=== PATIENT | female | born 1930 | race Caucasian/White ===

== ENCOUNTER 2016-09-14 01:46 | Emergency (ER) | payer MEDICARE, BC, OTHER ==
[2016-09-14] MEDS ORDERED: Fentanyl 100 MCG/2 ML VIAL ONE (02:28)
[2016-09-14 02:47] LABS: #Basophils 0.1 thou/uL (0.0-0.2); #Eosinphils 0.2 thou/uL (0.0-0.7); #Lymphocytes 2.5 thou/uL (1.20-3.40); #Monocytes 0.8 thou/uL (0.11-0.59); #Neutrophils 6.3 thou/uL (1.40-6.50); %Basophils 1.5 % (0.0-1.0); %Eosinophils 1.8 % (0.0-10.0); %Lymphocytes 25.5 % (21.0-51.0); %Monocytes 7.9 % (0.0-10.0); %Neutrophils 63.3 % (42.0-75.0); Hemoglobin 15.6 g/dL (12.0-16.0); Mean Corpuscular HGB CONC 34.9 g/dL (32.0-36.0); Mean Corpuscular Hemoglobin 32.2 pg (27.0-31.0); Mean Corpuscular Volume 92.1 fl (81.0-99.0); Mean Platelet Volume 7.2 fL (7.4-10.4); Platelet Count 294 thou/uL (130-400); RBC Distribution Width 12.3 % (11.5-14.5); Red Blood Cell (RBC) Count 4.85 mill/uL (4.20-5.40); White Blood Cell (WBC) Count 9.9 thou/uL (4.8-10.8)
[2016-09-14 03:02] LABS: ALT (SGPT) 22 U/L (0-55); AST (SGOT) 37 U/L (5-34); Albumin 3.4 g/dL (3.4-4.8); Alkaline Phosphatase 111 U/L (40-150); Anion Gap 18 mmol/L (10-20); BUN (Urea Nitrogen) 7 mg/dL (9.8-20.1); Bilirubin, Total 0.8 mg/dL (0.2-1.2); Calc. Creatinine Clearance 0 mL/min (70-130); Carbon Dioxide 26 mmol/L (23-31); Chloride 99 mmol/L (98-107); Estimated GFR-MDRD 85; Globulin 3.1 g/dL (2.4-3.5); Glucose 116 mg/dL (83-110); Protein, Total 6.5 g/dL (5.8-8.1); Sodium 139 mmol/L (136-145)
[2016-09-14 03:03] LABS: CKMB 1.3 ng/mL (0-6.6); Troponin I Less than 0.010 ng/mL (< 0.028)
--- NOTE | 2016-09-14 04:28 | ERRECORD ---
[facility] EMERGENCY RECORD HPI BACK (02:01 ABUS) CHIEF COMPLAINT: Patient presents for evaluation of pain, to the mid back, Patient presents for evaluation of tenderness, to the mid back. HISTORIAN: History provided by patient, Additional history obtained from EMS, 86 yr old F with PMH of AD who is DNR and comes In by EMS with reports of abdominal pain, distension (per senior living staff) and back pain per patient. No reports of N/V/D or apparent or reported trauma or falls. Patient does not move legs at baseline due to stroke deficts. MECHANISM OF INJURY: No apparent mechanism of injury. LOCATION: Unable to localize symptoms. QUALITY: Pain is dull in nature, described as aching. SEVERITY: Currently symptoms are severe. TIME COURSE: Sudden onset of symptoms. ASSOCIATED WITH: Associated with abdominal pain. EXACERBATED BY: Patient's condition exacerbated by movement. RELIEVED BY: Patient's condition relieved by nothing. ROS (02:04 ABUS) GI: Historian reports abdominal pain. NOTES: Systems not reviewed; unable., Emergency room caveat invoked due to patient with dementia. PAST MEDICAL HISTORY (03:27 ADIN) MEDICAL HISTORY: Notes: Vascular dementia. Insomnia. Anorexia. Malignant neoplasm of nipple and areola., Past medical history includes history of hyperlipidemia, neurological disease. ischemic cerebral vascular accident. FEMALE SURGICAL HISTORY: Patient's surgical history not available at time of evaluation. PSYCHIATRIC HISTORY: Psychiatric history includes, depression. KNOWN ALLERGIES Codeine: Reaction: MAKES HER NAUSEATED Hydrocodone Penicillin G Propoxyphene Sulfa Antibiotics: Reaction: MAKES HER NAUSEATED Varenicline CURRENT MEDICATIONS acetaminophen: CAPSULE : Strength - 500 mg : ORAL Patient Dose: 500 mg Oral As Needed. (03:21 ADIN) omeprazole: CAPSULE,DELAYED RELEASE (ENTERIC COATED) : Strength - 20 mg : ORAL &a-1R&a+25V*p+0X*[id number]*c202B*c15G*c2P*p-0X&a-25V&a+1R Name: Chika Castanon : 1930 F86 MedRec: [id number] AcctNum: [id number] Prepared: Rosey Sep 14, 2016 05:57 by Interface Page 1 of 4 pMD [facility] EMERGENCY RECORD Patient Dose: 20 mg Oral once a day. (03:21 ADIN) Miralax: POWDER (GRAM) : Strength - 17 gram/dose : ORAL Patient Dose: As Needed. (03:22 ADIN) Remeron: TABLET : Strength - 30 mg : ORAL Patient Dose: 30 mg Oral once a day. (03:22 ADIN) LORazepam: TABLET : Strength - 0.5 mg : ORAL Patient Dose: 0.5 mg Oral As Needed. (03:23 ADIN) potassium chloride: TABLET, EXTENDED RELEASE : Strength - 10 mEq : ORAL Patient Dose: 10 mEq Oral once a day. (03:24 ADIN) Exelon: PATCH, TRANSDERMAL 24 HOURS : Strength - 9.5 mg/24 hour : TRANSDERMAL Patient Dose: 1 Patch Transdermal once a day. (03:25 ADIN) cyanocobalamin (vitamin B-12): TABLET : Strength - 100 mcg : ORAL Patient Dose: Unknown. (03:25 ADIN) VITAL SIGNS VITAL SIGNS: BP: 159/84, Pulse: 95, Resp: 18, Temp: 98.7 (Oral), O2 sat: 94 on Room Air, Time: 09/14/2016 01:48. (01:48 ADIN) BP: 158/70, Pulse: 108, Resp: 18, Pain: 10, O2 sat: 97 on Room Air, Time: 09/14/2016 03:29. (03:29 ADIN) BP: 150/66, Pulse: 108, Resp: 16, O2 sat: 98 on RA, Time: 09/14/2016 03:54. (03:54 ADIN) BP: 144/66, Pulse: 109, Resp: 16, O2 sat: 92 on RA, Time: 09/14/2016 05:11. (05:11 ADIN) BP: 135/62, Pulse: 111, Resp: 16, Pain: 0, O2 sat: 93 on Room Air, Time: 09/14/2016 05:39. (05:39 ADIN) PHYSICAL EXAM (02:04 ABUS) CONSTITUTIONAL: Vital Signs Reviewed, Patient afebrile, Pulse normal, Blood pressure normal, Respiratory rate normal, Patient appears non toxic, Patient appears, in moderate pain distress, Patient, oriented to person. HEAD: Head exam normal, no Zavala's sign, No racoon sign, No contusions, No Lacerations. EYES: Eye exam included findings of eyelids normal to inspection, Pupils equally round and reactive to light, Extraocular muscles intact, Conjunctiva normal, Sclera normal, no periorbital ecchymosis, no periorbital edema, no periorbital erythema. ENT: Ear exam normal, external ear normal, Nose exam normal, no nasal deformity. NECK: Trachea midline. RESPIRATORY CHEST: Respiratory and chest exam normal, Respiratory exam included findings of no respiratory distress, Breath sounds clear, Chest exam included findings of chest movement symmetrical, Chest expansion equal. &a-1R&a+25V*p+0X*[id number]*c202B*c15G*c2P*p-0X&a-25V&a+1R Name: Chika Castanon : 1930 F86 MedRec: [id number] AcctNum: [id number] Prepared: Rosey Sep 14, 2016 05:57 by Interface Page 2 of 4 pMD [facility] EMERGENCY RECORD CARDIOVASCULAR: Cardiovascular assessment normal, Cardiovascular exam included findings of heart rate regular rate and rhythm, Heart sounds normal, normal S1, normal S2, no murmurs. ABDOMEN FEMALE: Abdominal exam included findings of abdomen tender, diffusely, Bowel sounds, hyperactive, no peritoneal signs. BACK: Back exam included findings of normal inspection, Tenderness, midline to the mid back. UPPER EXTREMITY: Radial pulse normal, no cyanosis, no clubbing, no edema, Contractures due to baseline state. LOWER EXTREMITY: Motor strength, no cyanosis, no clubbing. SKIN: Skin exam normal, Skin exam included findings of skin warm, No apparent bedsores. RADIOLOGYINTERPRETATION (04:17 ABUS) ABDOMEN: Abdomen/pelvis CT scan, with contrast shows, renal stones. 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 MEDICATION ADMINISTRATION SUMMARY Drug Name: *sodium chloride 0.9 % intravenous, Dose Ordered: 1 L, Route: IV Fluid Infusion, Status: Given, Time: 04:30 09/14/2016, Drug Name: fentaNYL (PF) injection, Dose Ordered: 50 mcg, Route: IV Push, Status: Given, Time: 02:33 09/14/2016, *Additional information available in notes, Detailed record available in Medication Service section. DOCTOR NOTES (02:06 ABUS) TEXT: 86 yr old F with PMH of AD who is DNR and comes In by EMS with reports of abdominal pain, distension (per senior living staff) and back pain per patient. Exam: Unreliable due to pts dementia and baseline immobility. DDx: SBO, Volvulus, stress fracture, muscle spasms, muscle strain Plan: IV, labs, CT abd/pelvis, with spinal recons. Update: CT + for renal stones (non-obs); labs unremarkalable. Pain likely from stones. Pt is DNR. Will d/c back to senior living. PROBLEM LIST No recorded problems DIAGNOSIS (04:20 ABUS) FINAL: PRIMARY: Renal Stones. PRESCRIPTION No recorded prescriptions DISPOSITION PATIENT: Disposition Type: Discharge, Disposition: Group Home, &a-1R&a+25V*p+0X*[id number]*c202B*c15G*c2P*p-0X&a-25V&a+1R Name: Chika Castanon : 1930 F86 MedRec: [id number] AcctNum: [id number] Prepared: TueSep 14, 2016 05:57 by Interface Page 3 of 4 pMD [facility] EMERGENCY RECORD Disposition Transport: Ambulance, Condition: Good. (04:20 ABUS) Patient left the department. (05:54 ADIN) Dickens: ASHLEY=MD Diane, Michael ADIN=TAYLA Lopez, Elaine &a-1R&a+25V*p+0X*[id number]*c202B*c15G*c2P*p-0X&a-25V&a+1R Name: Chika Castanon : 1930 F86 MedRec: [id number] AcctNum: [id number] Prepared: TueSep 14, 2016 05:57 by Interface Page 4 [facility] 4 [facility]MD [facility]
--- NOTE | 2016-09-14 04:33 | PICIS ---
[facility] EMERGENCY RECORD TRIAGE (TueSep 14, 2016 01:50 ADIN) TRIAGE NOTES: Patient c/o back pain after being lifted in a dalia lift yesterday and set down hard on the plastic. (TueSep 14, 2016 01:50 ADIN) PATIENT: NAME: Chika Castanon, AGE: 86, GENDER: female, : [id number], TIME OF GREET: TueSep 14, 2016 01:47, PREFERRED LANGUAGE: Sami, ETHNICITY: Not or , ECODE BILLING MAP: [facility], SSN: [id number], Zip Code: [address], PHONE: , , , PERSON ID: [id number], PCP: MD Vega Grover. (TueSep 14, 2016 01:50 ADIN) KG WEIGHT: 83.9 (est.). (01:52 ADIN) COMPLAINT: ABDOMINAL AND BACK PAIN. (TueSep 14, 2016 01:50 ADIN) ADMISSION: URGENCY: 4 Non Urgent, ADMISSION SOURCE: Assisted, TRANSPORT: AMBULANCE - [facility], BED: ED -02. (TueSep 14, 2016 01:50 ADIN) ASSESSMENT: Additional Triage notes: Patient sent from [facility] for back pain. (03:27 ADIN) IMMUNIZATIONS: Flu vaccine up to date, Tetanus immunization up to date, Pneumococcal vaccine up to date. (03:27 ADIN) SIRS SCORING: Heart Rate 55-109 (0), Temp range 96.8-101.1 (0), respiratory rate 12-24 (0), Latest WBC 3-14.9 (0), Mental Status altered: no (0), Infection or Suspected Infection: No. (03:27 ADIN) TRIAGE SCREENING: Patient denies suicidal ideation, Patient denies presence of domestic violence. (03:27 ADIN) PROVIDERS: TRIAGE NURSE: Elaine Lopez RN. (TueSep 14, 2016 01:50 ADIN) VITAL SIGNS: BP 159/84, Pulse 95, Resp 18, Temp 98.7, (Oral), O2 Sat 94, on Room Air, Time 09/14/2016 01:48. (01:48 ADIN) PREVIOUS VISIT ALLERGIES: Codeine, Hydrocodone, Penicillin G, Propoxyphene, Sulfa Antibiotics, Varenicline. (TueSep 14, 2016 01:50 ADIN) Codeine, Hydrocodone, Penicillin G, Propoxyphene, Sulfa Antibiotics, Varenicline. (03:27 ADIN) KNOWN ALLERGIES Codeine: Reaction: MAKES HER NAUSEATED Hydrocodone Penicillin G Propoxyphene Sulfa Antibiotics: Reaction: MAKES HER NAUSEATED Varenicline CURRENT MEDICATIONS acetaminophen: CAPSULE : Strength - 500 mg : ORAL Patient Dose: 500 mg Oral As Needed. (03:21 ADIN) omeprazole: CAPSULE,DELAYED RELEASE (ENTERIC COATED) : Strength - 20 mg : ORAL &a-1R&a+25V*p+0X*n5261U*c202B*c15G*c2P*p-0X&a-25V&a+1R Name: Chika Castanon : 1930 F86 MedRec: [id number] AcctNum: [id number] Prepared: TueSep 14, 2016 06:02 by Interface Page 1 of 10 pMD [facility] EMERGENCY RECORD Patient Dose: 20 mg Oral once a day. (03:21 ADIN) Miralax: POWDER (GRAM) : Strength - 17 gram/dose : ORAL Patient Dose: As Needed. (03:22 ADIN) Remeron: TABLET : Strength - 30 mg : ORAL Patient Dose: 30 mg Oral once a day. (03:22 ADIN) LORazepam: TABLET : Strength - 0.5 mg : ORAL Patient Dose: 0.5 mg Oral As Needed. (03:23 ADIN) potassium chloride: TABLET, EXTENDED RELEASE : Strength - 10 mEq : ORAL Patient Dose: 10 mEq Oral once a day. (03:24 ADIN) Exelon: PATCH, TRANSDERMAL 24 HOURS : Strength - 9.5 mg/24 hour : TRANSDERMAL Patient Dose: 1 Patch Transdermal once a day. (03:25 ADIN) cyanocobalamin (vitamin B-12): TABLET : Strength - 100 mcg : ORAL Patient Dose: Unknown. (03:25 ADIN) VITAL SIGNS VITAL SIGNS: BP: 159/84, Pulse: 95, Resp: 18, Temp: 98.7 (Oral), O2 sat: 94 on Room Air, Time: 09/14/2016 01:48. (01:48 ADIN) BP: 158/70, Pulse: 108, Resp: 18, Pain: 10, O2 sat: 97 on Room Air, Time: 09/14/2016 03:29. (03:29 ADIN) BP: 150/66, Pulse: 108, Resp: 16, O2 sat: 98 on RA, Time: 09/14/2016 03:54. (03:54 ADIN) BP: 144/66, Pulse: 109, Resp: 16, O2 sat: 92 on RA, Time: 09/14/2016 05:11. (05:11 ADIN) BP: 135/62, Pulse: 111, Resp: 16, Pain: 0, O2 sat: 93 on Room Air, Time: 09/14/2016 05:39. (05:39 ADIN) NURSING ASSESSMENT: BACK (02:30 ADIN) CONSTITUTIONAL: Patient arrives, via stretcher, via [facility], Unsteady gait, Lift to cart, History obtained from, [facility], jail record, Patient appears, in distress due to pain, Patient cooperative, Patient alert, Skin warm, Skin dry, Skin normal in color, Mucous membranes pink, Mucous membranes moist, Patient is well-groomed, Patient c/o severe back pain. Per the patient they used a [place] at the [place] yesterday to move her and when they went to set her down she hit her back. PAIN: to the mid back. BACK: Back assessment findings include tenderness to, no incontinence of bowel or bladder. NECK: Neck assessment findings include trachea midline, no tenderness, no pain with range of motion, Patient not in spinal immobilization on arrival. SAFETY: Side rails up, Cart/Stretcher in lowest position, Call light within reach, Hospital ID band on. &a-1R&a+25V*p+0X*q0947K*c202B*c15G*c2P*p-0X&a-25V&a+1R Name: Chika Castanon : 1930 F86 MedRec: [id number] AcctNum: [id number] Prepared: TueSep 14, 2016 06:02 by Interface Page 2 of 10 pMD [facility] EMERGENCY RECORD NURSING PROCEDURE: DISCHARGE NOTE (05:52 ADIN) DISCHARGE: Patient discharged to jail, [facility], Copy of chart sent to jail with patient, on a stretcher, transported via non-urgent ambulance, accompanied by emergency medical services personnel. BELONGINGS: Belongings and valuables with patient upon arrival to the Emergency Department include:, Belongings and valuables with patient at time of discharge include:, Belongings remain with patient, Valuables remain with patient. SAFETY: Side rails up, Cart/Stretcher in lowest position, Call light within reach, Hospital ID band on. NURSING PROCEDURE: IV PATIENT IDENITIFIER: Patient actively involved in identification process, Patient's identity verified by patient stating name, Patient's identity verified by hospital ID bracelet. (02:26 EROG) Patient actively involved in identification process, Patient's identity verified by patient stating name, Patient's identity verified by patient stating date, Patient's identity verified by hospital ID bracelet. (02:57 ADIN) Patient actively involved in identification process, Patient's identity verified by patient stating name, Patient's identity verified by patient stating date, Patient's identity verified by hospital ID bracelet. (05:11 ADIN) IV SITE 1: IV therapy indicated for medication administration, IV established, to the right wrist, using a 22 gauge catheter, in one attempt, IV site prepped with CHLOROPREP, Saline lock established, Flushed with normal saline (mls): 10, Labs drawn at time of placement, labeled in the presence of the patient and sent to lab. (02:26 EROG) IV SITE 2: IV therapy indicated for hydration, IV therapy indicated for medication administration, IV established, to the right antecubital, using a 20 gauge catheter, in one attempt, Saline lock established, Flushed with normal saline (mls): 10. (02:57 ADIN) FOLLOW-UP SITE 1: After procedure, sterile transparent dressing applied, After procedure, no swelling at IV site, After procedure, no redness at IV site. (02:26 EROG) IV discontinued, due to patient being discharged, catheter intact. (05:11 ADIN) FOLLOW-UP SITE 2: After procedure, sterile transparent dressing applied, After procedure, no drainage at IV site, After procedure, no swelling at IV site, After procedure, no redness at IV site. (02:57 ADIN) IV discontinued, due to patient being discharged, catheter intact. (05:11 ADIN) SAFETY: Side rails up, Cart/Stretcher in lowest position, Call light within reach, Hospital ID band on. (02:57 ADIN) Side rails up, Cart/Stretcher in lowest position, Call light within reach, Hospital ID band on. (05:11 ADIN) &a-1R&a+25V*p+0X*o9489G*c202B*c15G*c2P*p-0X&a-25V&a+1R Name: Chika Castanon : 1930 F86 MedRec: [id number] AcctNum: [id number] Prepared: Rosey Sep 14, 2016 06:02 by Interface Page 3 of 10 pMD [facility] EMERGENCY RECORD VITAL SIGNS: BP: 144, / 66, Pulse: 109, Resp: 16, O2 sat: 92, on: RA. (05:11 ADIN) NURSING PROCEDURE: NURSE NOTES NURSES NOTES: Notes: Patient asleep in the room. No needs at this time. Lights turned down for comfort. (03:54 ADIN) Notes: Patient asleep in the room, awaiting transport. No acute distress. No needs at this time. (05:40 ADIN) VITAL SIGNS: BP: 150, / 66, Pulse: 108, Resp: 16, O2 sat: 98, on: RA. (03:54 ADIN) NURSING PROCEDURE: TRANSPORT TO TESTS (03:09 ADIN) PATIENT IDENTIFIER: Patient actively involved in identification process, Patient's identity verified by patient stating name, Patient's identity verified by patient stating date, Patient's identity verified by hospital ID bracelet. TRANSPORT TO TESTS: Transport indicated to facilitate diagnosis, Patient transported to CT scan, via cart, Accompanied by x-ray sensor technician, Accompanied by nurse. SAFETY: Side rails up, Cart/Stretcher in lowest position, Call light within reach, Hospital ID band on. ORDER DETAILS Order Name: Cardiac Profile w/CKMB & Troponin - I, Status: Active, Time: 02:01 09/14/2016, User: ASHLEY, - Ordered for: MD Contreras Anthony, - Entered by: MD Contreras Anthony - Rosey Sep 14, 2016 02:01, - Quantity: 1, Order Name: CBC with Differential, Status: Active, Time: 02:01 09/14/2016, User: ABUS, - Ordered for: MD Contreras Anthony, - Entered by: MD Contreras Anthony - Rosey Sep 14, 2016 02:01, - Quantity: 1, Order Name: Comprehensive Metabolic Panel, Status: Active, Time: 02:01 09/14/2016, User: ABUS, - Ordered for: MD Contreras Anthony, - Entered by: MD Contreras Anthony - Rosey Sep 14, 2016 02:01, - Quantity: 1, Order Name: CT Cervical Spine WO Con, Status: Active, Time: 02:09 09/14/2016, User: ABUS, - Ordered for: MD Contreras Anthony, - Entered by: MD Contreras Anthony - Rosey Sep 14, 2016 02:09, - Quantity: 1, Order Name: CT Chest Abd Pelvis W Con(Trauma), Status: Active, Time: 02:01 09/14/2016, User: ABUS, - Ordered for: MD Contreras Anthony, - Entered by: MD Contreras Anthony - octaviano Sep 14, 2016 02:01, - Quantity: 1, Order Name: CT Lumbar Spine WO Con, Status: Canceled, Time: 03:46 &a-1R&a+25V*p+0X*r4874L*c202B*c15G*c2P*p-0X&a-25V&a+1R Name: Chika Castanon Ronald : 1930 F86 MedRec: [id number] AcctNum: [id number] Prepared: TueSep 14, 2016 06:02 by Interface Page 4 of 10 pMD [facility] EMERGENCY RECORD 09/14/2016, User: System, - Ordered for: MD Contreras Anthony, - Entered by: MD Contreras Anthony - Rosey Sep 14, 2016 02:09, - Quantity: 1, Order Name: CT Thoracic Spine WO Con, Status: Canceled, Time: 03:46 09/14/2016, User: System, - Ordered for: MD Contreras Anthony, - Entered by: MD Contreras Anthony - TueSep 14, 2016 02:09, - Quantity: 1. MEDICATION ADMINISTRATION SUMMARY Drug Name: *sodium chloride 0.9 % intravenous, Dose Ordered: 1 L, Route: IV Fluid Infusion, Status: Given, Time: 04:30 09/14/2016, Drug Name: fentaNYL (PF) injection, Dose Ordered: 50 mcg, Route: IV Push, Status: Given, Time: 02:33 09/14/2016, *Additional information available in notes, Detailed record available in Medication Service section. MEDICATION SERVICE fentaNYL (PF) injection: Order: fentaNYL (PF) injection (fentanyl citrate/preservative free) - Dose: 50 mcg : IV Push Schedule: Now Ordered by: Michael Contreras MD Entered by: Michael Contreras MD Sep 14, 2016 02:10 , Acknowledged by: Casey Gee RN Sep 14, 2016 02:26 Documented as given by: Casey Gee RN Sep 14, 2016 02:33 Patient, Medication, Dose, Route and Time verified prior to administration. Amount given: 50 mcg, Amount wasted: 50 mcg, IV SITE #1 IVP, initial medication, Slowly, Awake and alert- acceptable, Patient tolerated procedure well, Patient in position of comfort, Side rails up, Cart in lowest position, Call light in reach. sodium chloride 0.9 % intravenous: Order: sodium chloride 0.9 % intravenous (0.9 % sodium chloride) - Dose: 1 L : IV Fluid Infusion Schedule: Now Notes: (Bolus) Ordered by: Michael Contreras MD Entered by: Michael Contreras MD TueSep 14, 2016 04:20 , Acknowledged by: Elaine Lopez RN Sep 14, 2016 04:29 Documented as given by: Elaine Lopez RN Sep 14, 2016 04:30 Patient, Medication, Dose, Route and Time verified prior to administration. IV SITE #1 IV fluids established for hydration, IV SITE #1 into right antecubital, IV SITE #1 1st bag hung, amount 1 Liter hung, IV SITE #1 bolus of 1000 ml established, IV SITE #1 Rate of bolus, wide open, via primary tubing, Catheter placement confirmed via flush prior to administration, IV site without signs or symptoms of infiltration &a-1R&a+25V*p+0X*d4210O*c202B*c15G*c2P*p-0X&a-25V&a+1R Name: Chika Castanon : 1930 F86 MedRec: [id number] AcctNum: [id number] Prepared: TueSep 14, 2016 06:02 by Interface Page 5 of 10 pMD [facility] EMERGENCY RECORD during medication administration, No swelling during administration, No drainage during administration, IV flushed after administration, Correct patient, time, route, dose and medication confirmed prior to administration, Patient advised of actions and side-effects prior to administration, Allergies confirmed and medications reviewed prior to administration, Patient in position of comfort, Side rails up, Cart in lowest position. : Follow Up : Response assessment performed, No signs or symptoms of allergic reaction noted, _IV SITE #1:_, IV fluid infusion discontinued, on TueSep 14, 2016 05:10, 40 minutes, ., Total amount infused: 1 L, Advised not to ambulate without assistance, Patient in position of comfort, Side rails up, Cart in lowest position. (05:10 ADIN) HPI BACK (02:01 ABUS) CHIEF COMPLAINT: Patient presents for evaluation of pain, to the mid back, Patient presents for evaluation of tenderness, to the mid back. HISTORIAN: History provided by patient, Additional history obtained from EMS, 86 yr old F with PMH of AD who is DNR and comes In by EMS with reports of abdominal pain, distension (per jail staff) and back pain per patient. No reports of N/V/D or apparent or reported trauma or falls. Patient does not move legs at baseline due to stroke deficts. MECHANISM OF INJURY: No apparent mechanism of injury. LOCATION: Unable to localize symptoms. QUALITY: Pain is dull in nature, described as aching. SEVERITY: Currently symptoms are severe. TIME COURSE: Sudden onset of symptoms. ASSOCIATED WITH: Associated with abdominal pain. EXACERBATED BY: Patient's condition exacerbated by movement. RELIEVED BY: Patient's condition relieved by nothing. ROS (02:04 ABUS) GI: Historian reports abdominal pain. NOTES: Systems not reviewed; unable., Emergency room caveat invoked due to patient with dementia. PAST MEDICAL HISTORY (03:27 ADIN) MEDICAL HISTORY: Notes: Vascular dementia. Insomnia. Anorexia. Malignant neoplasm of nipple and areola., Past medical history includes history of hyperlipidemia, neurological disease. ischemic cerebral vascular accident. FEMALE SURGICAL HISTORY: Patient's surgical history not available at time of evaluation. PSYCHIATRIC HISTORY: Psychiatric history includes, depression. &a-1R&a+25V*p+0X*h5572S*c202B*c15G*c2P*p-0X&a-25V&a+1R Name: Chika Castanon : 1930 F86 MedRec: [id number] AcctNum: [id number] Prepared: Rosey Sep 14, 2016 06:02 by Interface Page 6 of 10 pMD [facility] EMERGENCY RECORD PHYSICAL EXAM (02:04 ABUS) CONSTITUTIONAL: Vital Signs Reviewed, Patient afebrile, Pulse normal, Blood pressure normal, Respiratory rate normal, Patient appears non toxic, Patient appears, in moderate pain distress, Patient, oriented to person. HEAD: Head exam normal, no Zavala's sign, No racoon sign, No contusions, No Lacerations. EYES: Eye exam included findings of eyelids normal to inspection, Pupils equally round and reactive to light, Extraocular muscles intact, Conjunctiva normal, Sclera normal, no periorbital ecchymosis, no periorbital edema, no periorbital erythema. ENT: Ear exam normal, external ear normal, Nose exam normal, no nasal deformity. NECK: Trachea midline. RESPIRATORY CHEST: Respiratory and chest exam normal, Respiratory exam included findings of no respiratory distress, Breath sounds clear, Chest exam included findings of chest movement symmetrical, Chest expansion equal. CARDIOVASCULAR: Cardiovascular assessment normal, Cardiovascular exam included findings of heart rate regular rate and rhythm, Heart sounds normal, normal S1, normal S2, no murmurs. ABDOMEN FEMALE: Abdominal exam included findings of abdomen tender, diffusely, Bowel sounds, hyperactive, no peritoneal signs. BACK: Back exam included findings of normal inspection, Tenderness, midline to the mid back. UPPER EXTREMITY: Radial pulse normal, no cyanosis, no clubbing, no edema, Contractures due to baseline state. LOWER EXTREMITY: Motor strength, no cyanosis, no clubbing. SKIN: Skin exam normal, Skin exam included findings of skin warm, No apparent bedsores. EVENTS TRANSFER: Triage to Emergency Main ED -02. (01:50 ADIN) Removed from Emergency Main ED -02. (05:54 ADIN) RADIOLOGYINTERPRETATION (04:17 ABUS) ABDOMEN: Abdomen/pelvis CT scan, with contrast shows, renal stones. SECTION CHIEF: Preliminary review of CT scans by, Radiologist. DOCTOR NOTES (02:06 ABUS) TEXT: 86 yr old F with PMH of AD who is DNR and comes In by EMS with reports of abdominal pain, distension (per jail staff) and back pain per patient. Exam: Unreliable due to pts dementia and baseline immobility. DDx: SBO, Volvulus, stress fracture, muscle spasms, muscle strain Plan: IV, labs, CT abd/pelvis, with spinal recons. Update: CT + for renal stones (non-obs); labs unremarkalable. Pain &a-1R&a+25V*p+0X*x7481K*c202B*c15G*c2P*p-0X&a-25V&a+1R Name: Chika Castanon : 1930 F86 MedRec: [id number] AcctNum: [id number] Prepared: Rosey Sep 14, 2016 06:02 by Interface Page 7 of 10 pMD [facility] EMERGENCY RECORD likely from stones. Pt is DNR. Will d/c back to jail. PROBLEM LIST No recorded problems DIAGNOSIS (04:20 ABUS) FINAL: PRIMARY: Renal Stones. DISPOSITION PATIENT: Disposition Type: Discharge, Disposition: Assisted, Disposition Transport: Ambulance, Condition: Good. (04:20 ABUS) Patient left the department. (05:54 ADIN) INSTRUCTION (04:21 ABUS) DISCHARGE: RENAL STONE UNDESCENDED NO SYMPTOMS. FOLLOWUP: MD Gary, [place], [facility], [address] [place] [id number], , Follow up with Primary Care Physician in 1-2 days. SPECIAL: Follow-up with your PCP for renal stones. PRESCRIPTION No recorded prescriptions IMAGING ALF NOTES: Image captured from scanner. (02:54 EROG) Page 2 added. Image captured from scanner. (02:54 EROG) Page 3 added. Image captured from scanner. (02:55 EROG) Page 4 added. Image captured from scanner. (02:55 EROG) Page 5 added. Image captured from scanner. (02:55 EROG) Page 6 added. Image captured from scanner. (02:55 EROG) Page 7 added. Image captured from scanner. (02:55 EROG) Page 8 added. Image captured from scanner. (02:55 EROG) Page 9 added. Image captured from scanner. (02:56 EROG) Page 10 added. Image captured from scanner. (02:56 EROG) Page 11 added. Image captured from scanner. (02:56 EROG) Page 12 added. Image captured from scanner. (02:56 EROG) Page 13 added. Image captured from scanner. (02:56 EROG) Page 14 added. Image captured from scanner. (02:56 EROG) Page 15 added. Image captured from scanner. (02:56 EROG) Page 16 added. Image captured from scanner. (02:57 EROG) Page 17 added. Image captured from scanner. (02:57 EROG) OUT OF HOSPITAL DNR: Image captured from scanner. (02:57 EROG) ALF MAR: Image captured from scanner. (03:00 EROG) Page 2 added. Image captured from scanner. (03:00 EROG) Page 3 added. Image captured from scanner. (03:00 EROG) Page 4 added. Image captured from scanner. (03:00 EROG) Page 5 added. Image captured from scanner. (03:00 EROG) Page 6 added. Image captured from scanner. (03:00 EROG) PHYSICIAN CERTIFICATION STATEMENT: Image captured from scanner. (04:32 EROG) &a-1R&a+25V*p+0X*n0254I*c202B*c15G*c2P*p-0X&a-25V&a+1R Name: Chika Castanon : 1930 F86 MedRec: [id number] AcctNum: [id number] Prepared: Rosey Sep 14, 2016 06:02 by Interface Page 8 of 10 pMD [facility] EMERGENCY RECORD *DISCHARGE INSTRUCTIONS RECEIPT: Image captured from scanner. (05:54 ADIN) *SUPPLY CHARGE SHEET: Image captured from scanner. (05:54 ADIN) ADMIN DIGITAL SIGNATURE: TAYLA Gee Eugene. (03:05 EROG) TAYLA Gee Eugene. (03:31 EROG) MD Contreras Anthony. (04:21 ABUS) TAYLA Gee Eugene. (04:33 EROG) RESULTS LABORATORY: CBC with Differential Collection DT: TueSep 14, 2016 02:25, White Blood Cell (WBC) Count 9.9 thou/uL, Range (4.8-10.8), Red Blood Cell (RBC) Count 4.85 mill/uL, Range (4.20-5.40), Hemoglobin 15.6 g/dL, Range (12.0-16.0), Hematocrit 44.7 %, Range (36.0-47.0), Mean Corpuscular Volume 92.1 fl, Range (81.0-99.0), *Mean Corpuscular Hemoglobin 32.2 - H pg, Range (27.0-31.0), Mean Corpuscular HGB CONC 34.9 g/dL, Range (32.0-36.0), RBC Distribution Width 12.3 %, Range (11.5-14.5), Platelet Count 294 thou/uL, Range (130-400), *Mean Platelet Volume 7.2 - L fL, Range (7.4-10.4), %Neutrophils 63.3 %, Range (42.0-75.0), %Lymphocytes 25.5 %, Range (21.0-51.0), %Monocytes 7.9 %, Range (0.0-10.0), %Eosinophils 1.8 %, Range (0.0-10.0), *%Basophils 1.5 - H %, Range (0.0-1.0), #Neutrophils 6.3 thou/uL, Range (1.40-6.50), #Lymphocytes 2.5 thou/uL, Range (1.20-3.40), *#Monocytes 0.8 - H thou/uL, Range (0.11-0.59), #Eosinphils 0.2 thou/uL, Range (0.0-0.7), #Basophils 0.1 thou/uL, Range (0.0-0.2). (02:56 ABUS) Cardiac Profile w/CKMB & TropI Collection DT: TueSep 14, 2016 02:25, CKMB 1.3 ng/mL, Range (0-6.6), Troponin I Less than 0.010 ng/mL, Range (< 0.028), Reference Range , 0.00 - 0.028 ng/mL Negative 0.029 - 0.29 ng/mL , Indeterminate Greater or Equal to 0.3 ng/mL Strongly suggests MS , . (04:13 ABUS) Comprehensive Metabolic Panel Collection DT: TueSep 14, 2016 02:41, Sodium 139 mmol/L, Range (136-145), Potassium 4.0 mmol/L, Range (3.5-5.1), Chloride 99 mmol/L, Range (98-107), Carbon Dioxide 26 mmol/L, Range (23-31), Anion Gap 18 mmol/L, Range (10-20), *BUN (Urea Nitrogen) 7 - L mg/dL, Range (9.8-20.1), Creatinine 0.66 mg/dL, Range (0.6-1.1), &a-1R&a+25V*p+0X*a7186W*c202B*c15G*c2P*p-0X&a-25V&a+1R Name: Chika Castanon : 1930 F86 MedRec: [id number] AcctNum: [id number] Prepared: TueSep 14, 2016 06:02 by Interface Page 9 of 10 pMD [facility] EMERGENCY RECORD Estimated GFR-MDRD 85 , Reference Range for Estimated GFR: Greater than 90, mL/min/1.73 m2 NOTE: The MDRD equation has not been validated for use, with the elderly (over 70 years of age), women, patients with, serious comorbid condition or persons with extremes of body size, muscle, mass, or nutritional status. , *Glucose 116 - H mg/dL, Range (83-110), Calcium 9.0 mg/dL, Range (7.8-10.44), Bilirubin, Total 0.8 mg/dL, Range (0.2-1.2), Protein, Total 6.5 g/dL, Range (5.8-8.1), NOTE: Plasma values are generally 0.3 to 0.5 g/dL higher than serum values, due to the presence of fibrinogen. , Albumin 3.4 g/dL, Range (3.4-4.8), Globulin 3.1 g/dL, Range (2.4-3.5), *Alb/Glob Ratio 1.1 - L g/dL, Range (1.2-2.2), Alkaline Phosphatase 111 U/L, Range (40-150), *AST (SGOT) 37 - H U/L, Range (5-34), ALT (SGPT) 22 U/L, Range (0-55). (04:13 AB) Dickens: ABUS=MD Diane, Michael OAKLEY=TAYLA Lopez, Elaine KULKARNI=TAYLA Gee, Casey &a-1R&a+25V*p+0X*o8352P*c202B*c15G*c2P*p-0X&a-25V&a+1R Name: Chika Castanon : 1930 F86 MedRec: [id number] AcctNum: [id number] Prepared: Rosey Sep 14, 2016 06:02 by Interface Page 10 of 10 pMD MTDD
[2016-09-14] MEDS ORDERED: Sodium Chloride 0.9% 1,000 ML BAG ONE (07:34)
--- NOTE | 2016-09-14 08:50 | CT ---
PRELIMINARY REPORT/[facility]/EMERGENCY AFTER HOURS PROCEDURE: EXAM: CT Chest With Intravenous Contrast. CLINICAL HISTORY: 86 years old, female; Pain; Abdominal pain; Other: None; Other: No pain to chest; Patient HX: Pain s tarted yesterday, abd distention; TECHNIQUE: Axial computed tomography images of the chest with intravenous contrast. CONTRAST: 94 mL of isovue 370 administered intravenously. COMPARISON: No relevant prior studies available. FINDINGS: Lungs: Calcified granuloma in the subpleural right middle lobe. The lungs are otherwise clear. Pleural space: Unremarkable. No pneumothorax. No significant effusion. Heart: There is a large pericardial effusion. Bones/joints: Unremarkable. No acute fracture. No dislocation. Soft tissues: Unremarkable. Vasculature: Unremarkable. No thoracic aortic aneurysm. Lymph nodes: Unremarkable. No enlarged lymph nodes. IMPRESSION: Large pericardial effusion. EXAM: CT Abdomen and Pelvis With Intravenous Contrast. CLINICAL HISTORY: 86 years old, female; Pain; Abdominal pain; Other: None; Other: No pain to chest; Patient HX: Pain s tarted yesterday, abd distention; TECHNIQUE: Axial computed tomography images of the abdomen and pelvis with intravenous contrast. CONTRAST: 94 mL of isovue 370 administered intravenously. COMPARISON: CT Chest Abd Pelvis W Con 09/14/2016 3:11:32 AM FINDINGS: Lower thorax: No acute findings. ABDOMEN: Liver: There is diffuse fatty infiltration of the liver. Gallbladder and bile ducts: The patient has had a cholecystectomy. No ductal dilation. Pancreas: Unremarkable. No mass. No ductal dilation. Spleen: There is a small cyst or hemangioma in the spleen. Adrenals: Unremarkable. No mass. Kidneys and ureters: There are nonobstructing calculi in both kidneys. Stomach and bowel: Small paraumbilical ventral hernia containing mesenteric fat but no bowel. Scatte red diverticula without evidence of acute diverticulitis or perforation. No obstruction. Appendix: No findings to suggest acute appendicitis. PELVIS: Bladder: Unremarkable. No mass. Reproductive: The patient has had a hysterectomy. There is a 1.6 cm cyst on the right ovary. ABDOMEN and PELVIS: Intraperitoneal space: Unremarkable. No free air. No significant fluid collection. Bones/joints: There is a left total hip arthroplasty which appears intact. No acute fracture. No dis location. Soft tissues: See above. Vasculature: Unremarkable. No abdominal aortic aneurysm. Lymph nodes: Unremarkable. No enlarged lymph nodes. IMPRESSION: Fatty liver. The patient has had a cholecystectomy and hysterectomy. Splenic cyst or hemangioma. Bilateral nonobstructing renal calculi. Ventral hernia. Diverticulosis without acute diverticulitis. Right ovarian cysts. Thank you for allowing us to participate in the care of your patient. Dictated and Authenticated by: Drew Iniguez MD 09/14/2016 4:07 AM Central Time ([place] \T\ [place]) FINAL REPORT INDICATION: Severe back pain and bloating. IMPRESSION: 1. Severe emphysema. 2. Moderate pericardial effusion, stable to a comparison dated 05/02/11. 3. Interval development of some mild subpleural nodularity involving the right upper lobe. Followu p examination in 6-8 weeks is helpful to document resolution. 4. Fatty liver. 5. Bilateral nephrolithiasis. There is a 7 mm calculus within the left renal pelvis without archie evidence of hydronephrosis. There is a 3.9 mm stone within the right renal pelvis without evidence of archie hydronephrosis. 6. Normal appendix and colonic diverticulosis without evidence of active diverticulitis. 7. Left hip endoprosthesis. 8. Diffuse osteopenia and thoracolumbar scoliosis. 9. Generally agree with the preliminary report provided. POS: [facility]
--- NOTE | 2016-09-14 08:52 | CT ---
PRELIMINARY REPORT/[facility]/EMERGENCY AFTER HOURS PROCEDURE: EXAM: CT Cervical Spine Without Intravenous Contrast. CLINICAL HISTORY: 86 years old, female; Pain; Other: Pain; Patient HX: Pt has back pain, pain with any motion; TECHNIQUE: Axial computed tomography images of the cervical spine without intravenous contrast. COMPARISON: No relevant prior studies available. FINDINGS: Vertebrae: Unremarkable. No acute fracture. Discs/spinal canal/neural foramina: There are moderate degenerative changes present. No spinal canal stenosis. Soft tissues: There is a right convex curvature which may be due to positioning or muscle spasm. Mastoid air cells: There is a small amount of fluid in the left mastoid air cells. Lung apices: Unremarkable as visualized. IMPRESSION: No acute findings. Thank you for allowing us to participate in the care of your patient. Dictated and Authenticated by: Drew Iniguez MD 09/14/2016 3:53 AM Central Time ([place] \T\ [place]) FINAL REPORT CERVICAL SPINE CT WITHOUT CONTRAST: DATE: 09/14/16. COMPARISON: None. HISTORY: Pain. FINDINGS: I agree with the preliminary [facility] report. There are a few opacified mastoid air cells on the left. Craniocervical junction is intact. There is degenerative change at the atlantoaxial interspace. Co yulia reformatted imaging demonstrates no acute findings involving the occipital condyle or the dens . C1-2 articulation appears normal. Evaluation is somewhat limited on lateral imaging secondary to tilt of the cervical spine and rotati on. There is degenerative change with disk space narrowing, sclerotic end plate change and posterio r osteophyte formation at C4-5 and C5-6. Multilevel midcervical spine facet hypertrophy. No acute fracture noted. Imaged lung apices are unremarkable. No displaced fracture or evidence of dislocation seen. IMPRESSION: No acute findings. POS: [facility]
[2016-09-14] MEDS ORDERED: Iopamidol 370 76% 100 ML VIAL ONE (11:47)
== END 2016-09-14 05:53 | disposition home or self-care (01) ==
LOC: MADERS 01:46
DX: N20.0 Calculus of kidney (principal); E78.5 Hyperlipidemia, unspecified; F32.9 Major depressive disorder, single episode, unspecified
CPT/HCPCS: 71260; 72125; 74177; 80053; 82553; 84484; 85025; 96361; 96374; J3010; J7050